=== PATIENT | female | born 1955 | race Caucasian/White ===

== ENCOUNTER → 2017-08-30 | Outpatient (CLI) | payer BC ==
--- NOTE | 2017-08-30 11:46 | ECHOF ---
Referral Reason:I49.9 cardiac arrhythmia MEASUREMENTS -------- HEIGHT: 160.0 cm WEIGHT: 85.7 kg BP: 121/57 IVSd: 1.4 cm (0.6 - 1.1) LVIDd: 4.1 cm (3.9 - 5.3) LVPWd: 1.4 cm (0.6 - 1.1) IVSs: 1.7 cm LVIDs: 3.0 cm LVPWs: 1.6 cm Ao Diam: 3.4 cm (2.0 - 3.7) AV Cusp: 2.2 cm (1.5 - 2.6) LA Diam: 2.8 cm (2.7 - 3.8) MV EXCURSION: 10.759 mm (> 18.000) MV EF SLOPE: 41 mm/s (70 - 150) EPSS: 0.9 cm MV E Ray: 0.65 m/s MV DecT: 320 ms MV A Ray: 1.06 m/s MV E/A Ratio: 0.61 RAP: 5.00 mmHg RVSP: 9.64 mmHg FINDINGS -------- Sinus rhythm. This was a technically good study. The left ventricular size is normal. There is mild concentric left ventricular hypertrophy. Overall left ventricular systolic function is low-normal with, an EF between 50 - 55 %. The right ventricle is normal in size and function. The left atrium is normal in size. The right atrium is normal in size. Aortic valve is trileaflet and is mildly thickened. There is trace mitral regurgitation. Trace tricuspid regurgitation present. The right ventricular systolic pressure, as measured by Doppler, is 9.64mmHg. Pulmonic valve appears structurally normal. The aortic root size is normal. Normal inferior vena cava with normal inspiratory collapse consistent with estimated right atrial pressure of 5 mmHg. The pericardium is normal. CONCLUSIONS -------- 1. Sinus rhythm. 2. There is trace mitral regurgitation. 3. Trace tricuspid regurgitation present. 4. The right ventricular systolic pressure, as measured by Doppler, is 9.64mmHg. 5. Pulmonic valve appears structurally normal. 6. The aortic root size is normal. 7. Normal inferior vena cava with normal inspiratory collapse consistent with estimated right atrial pressure of 5 mmHg. 8. The pericardium is normal. 9. This was a technically good study. 10. The left ventricular size is normal. 11. There is mild concentric left ventricular hypertrophy. 12. Overall left ventricular systolic function is low-normal with, an EF between 50 - 55 %. 13. The right ventricle is normal in size and function. 14. The left atrium is normal in size. 15. The right atrium is normal in size. 16. Aortic valve is trileaflet and is mildly thickened. [employer]: Lori Gauthier RDCS
== END | disposition home or self-care (01) ==
LOC: RADECHMAIN 10:31
PROVIDERS: ATTEND Family Medicine
DX: I49.9 Cardiac arrhythmia, unspecified (principal); I51.7 Cardiomegaly; R53.83 Other fatigue
CPT/HCPCS: 93225; 93226; 93306

== ENCOUNTER → 2017-09-03 | Outpatient (CLI) | payer BC ==
--- NOTE | 2017-09-03 13:59 | US ---
EXAMINATION TYPE: US thyroid st tissue head/neck DATE OF EXAM: 09/03/2017 COMPARISON: US CLINICAL HISTORY: E04.1 Thyroid nodule. GLAND SIZE: Right Lobe: 3.9 x 1.0 x 1.4 cm Overall Parenchyma: homogenous Left Lobe: 3.1 x 1.2 x 1.5 cm Overall Parenchyma: homogeneous Isthmus Thickness: 0.2 cm NODULES RIGHT: # of nodules measured on right: 1 1. 0.7 X 0.4 x 0.5 cm hypoechoic solid nodule at the lower pole with well-defined margins; . This nodule is wider than tall and shows intranodular vascularity. Prior size: 0.5 x 0.4 x 0.4 cm LEFT: # of nodules measured on left: 3 1. 1.4 X 1.1 x 1.2 cm hypoechoic mixed nodule at the lower pole with well-defined margins; . This nodule is wider than tall and shows intranodular vascularity. Prior size: 3.1 x 1.7 x 2.0 cm 2. 0.5 X 0.5 x 0.6 cm hypoechoic solid nodule at the lower pole with well-defined margins; present w ith microcalcifications. This nodule is wider than tall and shows intranodular vascularity. Prior size: not previously seen 3. 0.5 X 0.4 x 0.5 cm hypoechoic solid nodule at the upper pole with irregular margins; . This nodu le is wider than tall and shows intranodular vascularity. Prior size: not previously seen ISTHMUS: # of nodules measured in the isthmus: 0 Bilateral neck scanned, no evidence of lymphadenopathy. Patient states that Dr drained left thyroid cyst in office since last exam in 2011. . IMPRESSION: Multinodular changes as discussed above with interval reduction in size of the left-sided thyroid nod ule as measured above
== END | disposition home or self-care (01) ==
LOC: RADUSWWP 13:20
PROVIDERS: ATTEND Family Medicine
DX: E04.2 Nontoxic multinodular goiter (principal)
CPT/HCPCS: 76536

== ENCOUNTER 2018-05-10 22:12 | Emergency (ER) | payer BC ==
[2018-05-10] MEDS ORDERED: diphenhydrAMINE 50 MG/ML 1 ML VIAL IVP STA (22:38)
[2018-05-10] MEDS ORDERED: METOCLOPRAMIDE 5 MG/ML 2 ML VIAL IVP STA (22:38)
[2018-05-10] MEDS ORDERED: SODIUM CHLORIDE 0.9% 1,000 ML IV STA (22:38)
--- NOTE | 2018-05-10 22:42 | ED ---
General Adult HPI - General Chief complaint: Headache Stated complaint: head pain Time Seen by Provider: 05/10/18 22:27 Source: patient, RN notes reviewed Mode of arrival: ambulatory Limitations: no limitations - History of Present Illness Initial comments: Patient 62-year-old female presented to the emergency room today with a J-point headache over the last 8 weeks. She states she was diagnosed with sinus infection recently finishing Z-Truman and steroid pack. Patient was met that there was some improvement with these medications the first few days but no headache is still present and she finished them yesterday. Patient states headache is located in the front she does have tenderness over sinuses. She does have drainage. States drainage has improved after his medications. He still expresses a headache that she describes it as sharp. Patient does admit that previously she had some photosensitivity. She states that she did have some vomiting when symptoms initially started. She denies any other complaints or symptoms at this time. Denies any past medical history of high blood pressure. She does admit that her blood pressure was elevated when she was in the office last week. Patient's blood pressure at triage 171/100. Patient denies any recent fever, chills, shortness of breath, chest pain, back pain, abdominal pain, nausea or vomiting, numbness or tingling, dysuria or hematuria, constipation or diarrhea, visual changes, or any other complaints. - Related Data Home Medications Medication Instructions Recorded Confirmed Acetaminophen [Tylenol] 1,000 mg PO Q6H PRN 05/10/18 05/10/18 Azithromycin [Zithromax Z-pack] 250 mg PO DIRECTED 05/10/18 05/10/18 Eucalyptus Oil/Menthol/Camphor 170 gm TP BID PRN 05/10/18 05/10/18 [Vicks Vaporub Ointment] Ibuprofen [Motrin Ib] 200 - 600 mg PO Q6H PRN 05/10/18 05/10/18 Oxymetazoline HCl [Vicks Sinex] 1 spray EA NOSTRIL BID PRN 05/10/18 05/10/18 Sodium Chloride [[place]] 1 spray EA NOSTRIL TID PRN 05/10/18 05/10/18 methylPREDNISolone [Medrol Dose 4 mg PO DIRECTED 05/10/18 05/10/18 Pack] Allergies Allergy/AdvReac Type Severity Reaction Status Date / Time Penicillins Allergy Unknown Verified 05/10/18 22:29 Sulfa (Sulfonamide Allergy Unknown Verified 05/10/18 22:29 Antibiotics) Review of Systems ROS Statement: Those systems with pertinent positive or pertinent negative responses have been documented in the HPI. ROS Other: All systems not noted in ROS Statement are negative. Past Medical History Past Medical History: Fibromyalgia Additional Past Medical History / Comment(s): sinus infection. History of Any Multi-Drug Resistant Organisms: None Reported Past Surgical History: Cholecystectomy Past Psychological History: No Psychological Hx Reported Smoking Status: Never smoker Past Alcohol Use History: None Reported Past Drug Use History: None Reported General Exam - General Exam Comments Initial Comments: General: The patient is awake and alert, in no distress, and does not appear acutely ill. Eye: Pupils are equal, round and reactive to light, extra-ocular movements are intact. No nystagmus. There is normal conjunctiva bilaterally. No signs of icterus. Ears, nose, mouth and throat: There are moist mucous membranes and no oral lesions. Tender to palpation over both maxillary and frontal sinuses. Neck: The neck is supple, there is no tenderness or JVD. Cardiovascular: There is a regular rate and rhythm. No murmur, rub or gallop is appreciated. Respiratory: Lungs are clear to auscultation, respirations are non-labored, breath sounds are equal. No wheezes, stridor, rales, or rhonchi. Musculoskeletal: Normal ROM, no tenderness. Strength 5/5. Sensation intact. Pulses equal bilaterally 2+. Neurological: A&O x 3. CN II-XII intact, There are no obvious motor or sensory deficits. Coordination appears grossly intact. Speech is normal. Skin: Skin is warm and dry and no rashes or lesions are noted. Psychiatric: Cooperative, appropriate mood & affect, normal judgment. Limitations: no limitations Course Vital Signs 05/10/18 22:12 Temperature 97.9 F Pulse Rate 80 Respiratory 16 Rate Blood Pressure 171/100 O2 Sat by Pulse 98 Oximetry Disposition Referrals: Harvey West III, MD [Primary Care Provider] - 1-2 days
--- NOTE | 2018-05-11 00:10 | CT ---
EXAMINATION TYPE: CT brain wo con DATE OF EXAM: 05/10/2018 COMPARISON: NONE HISTORY: Headache CT DLP: 978.20 mGycm Automated exposure control for dose reduction was used. FINDINGS: Ventricles of normal size. There is no mass effect nor midline shift. There is no sign of intracrania l hemorrhage. The calvarium is intact. IMPRESSION: NEGATIVE CT SCAN OF THE BRAIN.
[2018-05-11 00:12] LABS: Basophils # (A) 0.1 k/uL (0-0.2); Basophils % (A) 1 %; Eosinophils # (A) 0.5 k/uL (0-0.7); Eosinophils % (A) 5 %; HGB 15.5 gm/dL (11.4-16.0); Lymphocytes # (A) 3.4 k/uL (1.0-4.8); Lymphocytes % (A) 30 %; MCH 29.1 pg (25.0-35.0); MCHC 33.7 g/dL (31.0-37.0); MCV 86.2 fL (80.0-100.0); Mean Platelet Volume 6.4; Monocytes # (A) 0.6 k/uL (0-1.0); Monocytes % (A) 5 %; Neutrophils # (A) 6.7 k/uL (1.3-7.7); Neutrophils % (A) 59 %; Platelet Count 294 k/uL (150-450); RBC 5.33 m/uL (3.80-5.40); WBC 11.4 k/uL (3.8-10.6)
[2018-05-11] MEDS ORDERED: hydrALAZINE HCL 20 MG/ML 1 ML VIAL IVP STA ×2 (00:15→01:40)
[2018-05-11 00:27] LABS: ALT 37 U/L (9-52); AST 24 U/L (14-36); Albumin 4.4 g/dL (3.5-5.0); Alkaline Phosphatase 109 U/L (38-126); Anion Gap 11 mmol/L; Blood Urea Nitrogen 10 mg/dL (7-17); Calcium 9.5 mg/dL (8.4-10.2); Carbon Dioxide 27 mmol/L (22-30); Chloride 101 mmol/L (98-107); Glucose 113 mg/dL (74-99); Sodium 139 mmol/L (137-145); Total Protein 7.2 g/dL (6.3-8.2)
[2018-05-11 00:54] VITALS: TEMP 97.5
[2018-05-11 01:45] VITALS: RESP 18
[2018-05-11] MEDS ORDERED: LABETALOL 5 MG/ML VIAL MDV IVP STA (02:27)
[2018-05-11] MEDS ORDERED: KETOROLAC 30 MG/ML 1 ML VIAL IVP STA (02:33)
[2018-05-11 02:48] VITALS: BP 188/85; PULSE 80
== END 2018-05-11 04:14 | disposition home or self-care (01) ==
LOC: EC 22:12
DX: R51 Headache (principal); R03.0 Elevated blood-pressure reading, without diagnosis of hypertension; R11.10 Vomiting, unspecified; Z79.52 Long term (current) use of systemic steroids; Z79.899 Other long term (current) drug therapy; Z88.0 Allergy status to penicillin; Z88.2 Allergy status to sulfonamides
CPT/HCPCS: 36415; 80053; 85025; 70450; 99284; 96374; 96375 ×4; 96376; 96361; J0360; J1200; J2765; J1885

== ENCOUNTER 2018-05-16 22:29 | Emergency (ER) | payer BC ==
[2018-05-16 22:35] VITALS: BP 161/84; PULSE 88; RESP 18; TEMP 98.2
--- NOTE | 2018-05-16 23:14 | ED ---
Skin/Abscess/FB HPI - General Chief complaint: Skin/Abscess/Foreign Body Stated complaint: poss infection on arm Time Seen by Provider: 05/16/18 22:39 Source: patient, RN notes reviewed Mode of arrival: ambulatory Limitations: no limitations - History of Present Illness Initial comments: This is a 62-year-old female who presents to the emergency department with chief complaint of possible skin infection. Patient states that last Wednesday she was evaluated in the emergency department for hypertension. She states that she had an IV in her left forearm. She states that since she was discharged home she has had a large bruise and some tenderness to the forearm. She states that yesterday she developed a rash to the area. She states that the rash is pruritic. Denies any fevers or chills, chest pain shortness of breath, abdominal pain, nausea or vomiting. She states that she is concerned that she may have an infection to the IV site. She states that she has taken one dose of Benadryl yesterday with minimal relief. - Related Data Home Medications Medication Instructions Recorded Confirmed Acetaminophen [Tylenol] 1,000 mg PO Q6H PRN 05/10/18 05/16/18 Eucalyptus Oil/Menthol/Camphor 170 gm TP BID PRN 05/10/18 05/16/18 [Vicks Vaporub Ointment] Ibuprofen [Motrin Ib] 200 - 600 mg PO Q6H PRN 05/10/18 05/16/18 Oxymetazoline HCl [Vicks Sinex] 1 spray EA NOSTRIL BID PRN 05/10/18 05/16/18 Sodium Chloride [[place]] 1 spray EA NOSTRIL TID PRN 05/10/18 05/16/18 Previous Rx's Medication Instructions Recorded Hydrocortisone Cream 1 applic TOPICAL BID #1 tube 05/16/18 [Hydrocortisone 2.5% Cream] Allergies Allergy/AdvReac Type Severity Reaction Status Date / Time Penicillins Allergy Unknown Verified 05/16/18 22:49 pseudoephedrine Allergy Rapid Verified 05/16/18 22:49 Heart Rate Sulfa (Sulfonamide Allergy Unknown Verified 05/16/18 22:49 Antibiotics) Review of Systems ROS Statement: Those systems with pertinent positive or pertinent negative responses have been documented in the HPI. ROS Other: All systems not noted in ROS Statement are negative. Past Medical History Past Medical History: Fibromyalgia, Hypertension Additional Past Medical History / Comment(s): sinus infection. History of Any Multi-Drug Resistant Organisms: None Reported Past Surgical History: Cholecystectomy Past Psychological History: No Psychological Hx Reported Smoking Status: Never smoker Past Alcohol Use History: None Reported Past Drug Use History: None Reported General Exam - General Exam Comments Initial Comments: General: Awake and alert, well-developed; in no apparent distress. HEENT: Head atraumatic, normocephalic. Pupils are equal, round and reactive to light. Extraocular movements intact. Oropharynx moist without erythema or exudate. Neck: Supple. Normal ROM. Cardiovascular: Regular rate and rhythm. No murmurs, rubs or gallops. Chest symmetrical. Respiratory: Lungs clear to auscultation bilaterally. No wheezes, rales or rhonchi. Normal respiratory effort with no use of accessory muscles. Musculoskeletal: Normal range of motion of the left upper extremity. Sensation is intact. Radial pulses are 2+ equal and palpable bilaterally. Skin: [place], warm and dry. There is a circular area of ecchymosis at the left proximal forearm approximately 3 cm in diameter. In the center is a small scab where previous IV was inserted. There is tenderness on palpation along this vein. Surrounding the bruise is a mildly erythematous, vesicular, pruritic rash. No significant erythema or warmth. Neurological: Alert and oriented x3. CN II-XII grossly intact. Speech is fluent and answers are appropriate. No focal neuro deficits. Psychiatric: Normal mood and affect. No overt signs of depression or anxiety noted. Limitations: no limitations Course Vital Signs 05/16/18 22:30 Temperature 98.2 F Pulse Rate 88 Respiratory 18 Rate Blood Pressure 161/84 O2 Sat by Pulse 98 Oximetry Medical Decision Making - Medical Decision Making This is a 62-year-old female who presents to the emergency department with chief complaint of possible skin infection. Patient had an IV in her left forearm that was removed this past Wednesday. Patient states that she has had a bruise and tenderness to this area but developed a pruritic rash yesterday. On physical examination, there is no sign of infection. There is a small area of ecchymosis and a pruritic rash to the proximal left forearm. No significant erythema or warmth. There is tenderness along the vein where the IV was inserted. Patient likely suffering from a local allerigc reaction as well as possible superficial thrombophlebitis. Recommended warm compresses and a topical steroid. Vital signs are stable and patient is no acute distress. Return parameters were discussed. Discussed monitoring for any signs of infection. Patient is neurovascularly intact and vital signs are stable. Recommended following up with her primary care provider within 1-2 days. Patient is in agreement with plan voices understanding. All questions answered. Disposition Clinical Impression: Pruritic rash Disposition: HOME SELF-CARE Condition: Good Instructions: Dermatitis (ED), Acute Rash (ED), Superficial Thrombophlebitis ( ED) Additional Instructions: Please apply warm compresses at least 4 times daily for 15 minutes at a time. Please apply topical steroid twice daily for the next 2 weeks as needed. Please follow up with her primary care provider within 1-2 days. Please monitor for any signs of infection and including increase in redness or warmth to the area. Please return to the emergency department if you develop any worsening of symptoms or any concerning symptoms arise. Prescriptions: Hydrocortisone Cream [Hydrocortisone 2.5% Cream] 1 applic TOPICAL BID #1 tube Is patient prescribed a controlled substance at d/c from ED?: No Referrals: Harvey West III, MD [Primary Care Provider] - 1-2 days Time of Disposition: 23:14
== END 2018-05-16 23:15 | disposition home or self-care (01) ==
LOC: EC 22:29
DX: R21 Rash and other nonspecific skin eruption (principal); S50.12XA Contusion of left forearm, initial encounter; M79.7 Fibromyalgia; Z90.49 Acquired absence of other specified parts of digestive tract; Z88.0 Allergy status to penicillin; Z88.2 Allergy status to sulfonamides; Z88.8 Allergy status to other drugs, medicaments and biological substances; X58.XXXA Exposure to other specified factors, initial encounter
CPT/HCPCS: 99282

== ENCOUNTER → 2022-08-13 | Outpatient (CLI) | payer MEDICARE | END | disposition home or self-care (01) | LOC: LABWHC1 12:59 | PROVIDERS: ATTEND Psychiatry & Neurology Neurology | DX: M79.10 Myalgia, unspecified site (principal); R53.83 Other fatigue; R53.1 Weakness | CPT/HCPCS: 36415; 82306; 82550; 82607 ==

== ENCOUNTER → 2022-08-13 | Outpatient (CLI) | payer MEDICARE ==
--- NOTE | 2022-08-14 09:05 | MR ---
EXAMINATION TYPE: MR brain/cspine wo DATE OF EXAM: 08/13/2022 COMPARISON: CT brain 05/10/2018 HISTORY: [place] weakness CONTRAST: Performed utilizing 0 mL intravenous Gadavist gadolinium contrast. TECHNIQUE: Multiplanar, multiecho imaging on a 3.0 Ne magnet is performed through the brain. Stud y is performed within 24 hours of arrival to the hospital. The craniovertebral junction is normal. The pituitary is normal. Optic chiasm as visualized appears normal. Diffusion-weighted imaging is performed. No abnormal hyperintensity is present to suggest an acute i ntracranial infarct or acute ischemic change. There are punctate periventricular white matter hyperintensities within the centrum semiovale these a re nonspecific. Differential diagnosis should include multiple sclerosis and microvascular ischemic c hange. Couple of subcortical white matter changes are present in the frontal lobes. Ventricles and sulci are appropriate for the patient age. IMPRESSIONS: 1. Scattered small periventricular white matter hyperintensities can be related to microvascular isch emic change or multiple sclerosis among other etiologies. Correlate with the patient's history. EXAMINATION TYPE: MR brain/cspine wo DATE OF EXAM: 08/13/2022 COMPARISON: None HISTORY: [place] weakness CONTRAST: Performed utilizing 0 mL intravenous Gadavist gadolinium contrast. TECHNIQUE: Multiplanar multiecho imaging on a 3.0 Ne magnet is performed through the cervical spin e. FINDINGS: The craniovertebral junction is normal. Vertebral body alignment is normal. C7-T1: No focal disc herniation or significant disc bulge is evident. No spinal canal stenosis or n eural foraminal stenosis is present. C6-7: There is some uncovertebral joint hypertrophy with mild right foraminal narrowing. No focal dis c herniation. Minimal disc bulge and anterior thecal sac flattening. No spinal canal stenosis is evid ent.. C5-6: No focal disc herniation or significant disc bulge is evident. No spinal canal stenosis or jamie ral foraminal stenosis is present. C4-5: No focal disc herniation or significant disc bulge is evident. No spinal canal stenosis or jamie ral foraminal stenosis is present. C3-4: No focal disc herniation or significant disc bulge is evident. No spinal canal stenosis or jamie ral foraminal stenosis is present. C2-3: No focal disc herniation or significant disc bulge is evident. No spinal canal stenosis or jamie ral foraminal stenosis is present. IMPRESSIONS: 1. Minimal disc bulge C6-7. 2. Some uncovertebral joint hypertrophy is contributing to right C6-7 foraminal stenosis.
== END | disposition home or self-care (01) ==
LOC: RADMRIMAIN 11:45
PROVIDERS: ATTEND Psychiatry & Neurology Neurology
DX: I67.9 Cerebrovascular disease, unspecified (principal); M51.26 Other intervertebral disc displacement, lumbar region; M48.02 Spinal stenosis, cervical region
CPT/HCPCS: 70551; 72141

== ENCOUNTER → 2022-09-30 | Outpatient (CLI) | payer MEDICARE ==
--- NOTE | 2022-10-01 13:14 | MR ---
EXAMINATION TYPE: MR thoracic spine wo con DATE OF EXAM: 09/30/2022 5:35 PM COMPARISON: No priors. INDICATION: Patient age:Female; 67 years old; Reason for study: M51.04 INTERVERTEBRAL DISC DISORDERS; TECHNIQUE: Multi planar, multi sequence imaging was performed utilizing: T1-weighted and T2-weighted of the thoracic spine. The patient was not given Gadolinium. IV Contrast: None FINDINGS: There is normal alignment of the spine. Vertebral body heights are maintained. Scattered M odic endplate changes are noted. Mild disc bulging at T6-T7 without significant spinal canal stenosis . Neural foramen are patent. No evidence of acute fracture. Intervertebral disc signal is grossly gary ntained. Nodular thickening of the right adrenal gland favored represent adenomatous hypertrophy changes. IMPRESSION: 1. No evidence for significant spinal canal or neural foraminal stenosis. 2. Mild multilevel disc degeneration changes throughout the spine.
== END | disposition home or self-care (01) ==
LOC: RADMRIMAIN 16:26
PROVIDERS: ATTEND Psychiatry & Neurology Neurology
DX: M51.04 Intervertebral disc disorders with myelopathy, thoracic region (principal)
CPT/HCPCS: 72146

== ENCOUNTER → 2022-11-25 | Outpatient (CLI) | payer MEDICARE ==
--- NOTE | 2022-11-25 21:47 | MR ---
EXAMINATION TYPE: MR lumbar spine wo con DATE OF EXAM: 11/25/2022 3:40 PM COMPARISON: None . CLINICAL INDICATION:Female, 67 years old with history of M54.40 LUMBAGO WITH SCIATICA; TECHNIQUE: Multi planar, multi sequence imaging was performed utilizing: T1-weighted, T2-weighted, a nd turbo inversion recovery imaging of the lumbar spine. IV Contrast: None. FINDINGS: Alignment: The lumbar vertebral bodies have preserved heights and alignment. Cord: The conus medullaris and the distal spinal cord appear unremarkable with regards to their signa l intensity and morphology. Bones/Discs: Bone signal is within normal limits. Scattered joint arthropathy changes are present. Ma nual minimal osteophyte formation. Disc spaces are grossly maintained. No significant disc desiccatio n. T12-L1: No evidence of significant spinal canal stenosis or neural foraminal stenosis. L1-L2: No evidence of significant spinal canal stenosis or neural foraminal stenosis. L2-L3: No evidence of significant spinal canal stenosis or neural foraminal stenosis. L3-L4: No evidence of significant spinal canal stenosis or neural foraminal stenosis. L4-L5: No evidence of significant spinal canal stenosis or neural foraminal stenosis. L5-S1: No evidence of significant spinal canal stenosis or neural foraminal stenosis. IMPRESSION: 1. No definitive evidence of disc herniation or significant spinal canal stenosis. 2. Mild disc degeneration with associated osteoarthritic changes.
== END | disposition home or self-care (01) ==
LOC: RADMRIMAIN 14:31
PROVIDERS: ATTEND Psychiatry & Neurology Neurology
DX: M51.16 Intervertebral disc disorders with radiculopathy, lumbar region (principal); M47.26 Other spondylosis with radiculopathy, lumbar region
CPT/HCPCS: 72148

== ENCOUNTER → 2024-04-25 | Day surgery (SDC) | payer MEDICARE ==
[~2024-04-25] MED LIST: LACTATED RINGERS 1,000 ML IV SCH; MIDAZOLAM 2 MG/2 ML VIAL ONE; fentaNYL (PF) 50 MCG/ML 2 ML AMP ONE
[2024-04-25] MEDS: IV FLUID CONTINUATION 1,000 ML IV ONE (08:00)
[2024-04-25 08:09] VITALS: TEMP 97.8
--- NOTE | 2024-04-25 08:32 | P.PCN ---
Date of Procedure: 04/25/24 Description of Procedure: Procedure: Lumbar Puncture . Preoperative Diagnoses: Progressive lower ext weakness, Multiple Sclerosis Postoperative Diagnosis: same ANESTHESIA: Patient re-evaluated immediately prior to sedation Medication Administered by: Nurse Sedation Type: Moderate sedation 2mg versed 100mcg of fentanyl Sedation Supervision start time: 806 Sedation Supervision end time: 829 EBL: Minimal Condition: stable. Complications: none. Description of the procedure: The patient was brought to the procedure room on the stretcher. After consent was signed. All discussions were had regarding the risks benefits and alternatives to the procedure. After consent was signed, the patient was laid in the left lateral decubitus position but was unsuccessful in this position, we had the patient sit up and one attempt was made at L3/4. . A 27-gauge needle was used to anesthetize the skin and subcu tissue using 1% lidocaine. After the needle was removed, a 22-gauge spinal needle was placed through the subcutaneous tissue into the spinal canal. The opening pressure was noted to be 24cm cm of water IN THE SEATED POSITION, closing pressure was noted to be 22 cm of water IN THE SEATED POSITION. The patient did very well. We did discuss potential for a spinal headache and the treatments for that. The patient will be in the recovery room for about one hour. Labs were sent to the lab after labeling.
[2024-04-25] MEDS: LACTATED RINGERS 1,000 ML IV ONE (08:37)
[2024-04-25] MEDS: ONDANSETRON 4 MG/2 ML VIAL IM STA (08:46)
[2024-04-25 09:08] LABS: Glucose,CSF 55 mg/dL (40-70); Total Protein,CSF 44 mg/dL (12-60)
[2024-04-25 09:41] VITALS: RESP 16
[2024-04-25 10:35] VITALS: BP 154/78; PULSE 65
[2024-04-25 11:12] LABS: Appearance,CSF Clear; CSF Tube Number 4; Nucleated Cells, CSF 1 u/L (0-5); Red Blood Cell,CSF 522 u/L (0-10)
[2024-04-25 11:13] LABS: Red Blood Cell, CSF Fresh 100 %
== END ==
LOC: ORPAIN 07:05
PROVIDERS: ATTEND Hospitalist
DX: G35 Multiple sclerosis (principal); R53.1 Weakness; Z88.0 Allergy status to penicillin; Z88.2 Allergy status to sulfonamides; Z88.8 Allergy status to other drugs, medicaments and biological substances; Z79.899 Other long term (current) drug therapy
CPT/HCPCS: 88108; 84157; 82945; 82040; 82042; 82784; 83916; 89050; 87070; 87205; 62270; J2250; J2405; J3010

== ENCOUNTER → 2024-05-16 | Outpatient (CLI) | payer MEDICARE ==
[2024-05-17 13:04] LABS: IgG - CSF 4.4 mg/dL (0.0 - 3.4); IgG Synthesis Rate 10.96 mg/day (0.00 - 3.00); IgG/Albumin Index (CSF) 1.34 (0.00 - 0.77); Immunoglobulin G 943 mg/dL (700 - 1600)
== END | disposition home or self-care (01) ==
LOC: LABWHC1 09:48
PROVIDERS: ATTEND Psychiatry & Neurology Neurology
DX: G35 Multiple sclerosis (principal)
CPT/HCPCS: 36415; 82040; 82042; 82784; 83916

== ENCOUNTER → 2024-05-24 | Outpatient (CLI) | payer MEDICARE ==
[2024-05-24 18:29] LABS: Basophils # (A) 0.08 X 10*3/uL (0.00-0.10); Eosinophils # (A) 0.12 X 10*3/uL (0.04-0.35); Eosinophils % (A) 1.5 %; HCT 43.7 % (37.2-46.3); HGB 14.2 g/dL (12.0-15.0); Lymphocytes # (A) 2.13 X 10*3/uL (0.90-5.00); Lymphocytes % (A) 26.9 %; MCH 29.2 pg (27.0-32.0); MCHC 32.5 g/dL (32.0-37.0); MCV 89.9 FL (80.0-97.0); Mean Platelet Volume 9.6 FL (9.5-12.2); Monocytes # (A) 0.47 X 10*3/uL (0.20-1.00); Monocytes % (A) 5.9 %; NRBC Per 100 WBC 0 X 10*3/uL (0.00-0.01); Neutrophils # (A) 5.08 X 10*3/uL (1.80-7.70); Neutrophils % (A) 64.3 %; Platelet Count 374 X 10*3/uL (140-440); RBC 4.86 X 10*6/uL (4.10-5.20); RDW 14.6 % (11.5-14.5); WBC 7.91 X 10*3/uL (4.50-10.00)
[2024-05-24 19:27] LABS: Hepatitis B Core IgM Nonreactive (Nonreactive); Hepatitis B Surface Antigen Nonreactive (Nonreactive)
[2024-05-24 19:31] LABS: ALT 12 U/L (8-44); AST 14 U/L (13-35); Albumin 4.3 g/dL (3.8-4.9); Albumin/Globulin Ratio 1.65 Ratio (1.60-3.17); Alkaline Phosphatase 98 U/L (41-126); Blood Urea Nitrogen 8.4 mg/dL (9.0-27.0); Calcium 9.4 mg/dL (8.7-10.3); Chloride 106 mmol/L (96-109); Creatine Kinase 40 U/L (26-186); Globulin 2.6 g/dL (1.6-3.3); Glucose 143 mg/dL (70-110); Potassium 3.6 mmol/L (3.5-5.5); Sodium 144 mmol/L (135-145); T4, Free (Free Thyroxine) 1.13 ng/dL (0.80-1.80); Total Bilirubin 0.4 mg/dL (0.3-1.2); Total Protein 6.9 g/dL (6.2-8.2)
[2024-05-24 19:48] LABS: Immunoglobulin M 46.1 mg/dL (40.0-280.0)
== END | disposition home or self-care (01) ==
LOC: LABWHC1 13:32
PROVIDERS: ATTEND Psychiatry & Neurology Neurology
DX: G35 Multiple sclerosis (principal); R53.1 Weakness; R26.89 Other abnormalities of gait and mobility; Z79.899 Other long term (current) drug therapy
CPT/HCPCS: 36415; 80053; 82550; 82607; 82784; 82785; 84439; 84443; 85025; 86704; 86705; 87340

== ENCOUNTER → 2025-04-25 | Outpatient (CLI) | payer MEDICARE ==
[~2025-04-25] MED LIST changes: -LACTATED RINGERS 1,000 ML IV SCH; -MIDAZOLAM 2 MG/2 ML VIAL ONE; +SODIUM CHLORIDE 0.9% 250 ML in EMPTY BAG 1 BAG IV PRN; -fentaNYL (PF) 50 MCG/ML 2 ML AMP ONE
[2025-04-25 13:06] VITALS: BP 152/80; PULSE 64; RESP 16; TEMP 97.6
[2025-04-25] MEDS: SODIUM CHLORIDE 0.9% 500 ML 500 ML in EMPTY BAG 1 BAG IV PRN (13:07)
[2025-04-25] MEDS: methylPREDNISolone SOD SUCCIN 500 MG in SODIUM CHLORIDE 0.9% 100 ML IVPB NR (13:07)
== END ==
LOC: PROCWHC3 12:22
PROVIDERS: ATTEND Psychiatry & Neurology Neurology
DX: G35 Multiple sclerosis (principal)
CPT/HCPCS: 96365; J2919